=== PATIENT | male | born 1995 | race African-American/Black ===

== ENCOUNTER 2017-10-08 01:51 | Emergency (ER) | payer SELFPAY ==
[~2017-10-08] VITALS: Ht 180.3 cm; Wt 65.0 kg
[2017-10-08 01:57] VITALS: BP 125/60; PULSE 46; RESP 20; TEMP 97.8; O2SAT 100
[2017-10-08] MEDS ORDERED: MONT10TA2 PO (01:58)
[2017-10-08] MEDS ORDERED: SODIUM CHLORIDE 0.9% FLUSH 10 ML FLUSH IVF PRN (02:45)
[2017-10-08 02:54] LABS: AUTOMATED NEUTROPHIL # 5.2 TH/MM3 (1.8-7.7); BASOPHIL # 0.1 TH/MM3 (0-0.2); BASOPHIL % 0.7 % (0.0-2.0); EOSINOPHIL # 0.1 TH/MM3 (0-0.4); EOSINOPHIL % 0.8 % (0.0-4.0); HEMATOCRIT 40.2 % (39.0-51.0); HEMOGLOBIN 13.2 GM/DL (13.0-17.0); LYMPH % 23.9 % (9.0-44.0); LYMPHOCYTE # 1.8 TH/MM3 (1.0-4.8); MEAN CELL VOLUME 80.5 FL (80.0-100.0); MEAN CORPUSCULAR HEMOGLOBIN 26.5 PG (27.0-34.0); MEAN CORPUSCULAR HGB CONC 32.9 % (32.0-36.0); MEAN PLATELET VOLUME 9.4 FL (7.0-11.0); MONO % 5.5 % (0.0-8.0); MONOCYTE # 0.4 TH/MM3 (0-0.9); NEUT % 69.1 % (16.0-70.0); PLATELET COUNT 264 TH/MM3 (150-450); RED BLOOD COUNT 4.99 MIL/MM3 (4.50-5.90); RED CELL DISTRIBUTION WIDTH 13.7 % (11.6-17.2); WHITE BLOOD COUNT 7.5 TH/MM3 (4.0-11.0)
--- NOTE | 2017-10-08 03:04 | PD ---
HPI Chief Complaint: Chest Pain Time Seen by Provider: 02:08 Travel History International Travel<30 days: No Contact w/Intl Traveler<30days: No Traveled to known affect area: No History of Present Illness HPI The patient is a 22-year-old male who presents emergency department for chest pain. The patient states he developed chest pain earlier tonight while sleeping. The chest pain was located in the left lower aspect of the chest, nonradiating, described as "pins and needles ", then developed and the sharpness that lasted for 5 minutes and then resolved. The patient denied any shortness of breath, nausea, vomiting, or diaphoresis with the chest pain. 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 He denies any recent URIs. He denies any history of pericarditis, myocarditis, or coronary artery disease. Patient denies any history of hypertension, hyperlipidemia, diabetes, tobacco use, or significant early family medical history. He denies any associated nausea, vomiting, or abdominal pain. Symptoms are moderate. The symptoms alleviated themselves prior to arrival. [facility] Past Medical History Asthma: Yes Immunizations Current: Yes Tetanus Vaccination: Never Vaccinated Influenza Vaccination: No Past Surgical History Surgical History: No Previous Surgery Social History Alcohol Use: No Tobacco Use: No Substance Use: Yes Allergies-Medications (Allergen,Severity, Reaction): Coded Allergies: No Known Allergies (Unverified , 10/08/17) Reported Meds & Prescriptions Reported Meds & Active Scripts Active Reported Singulair (Montelukast Sodium) 10 Mg Tab 10 Mg PO HS Review of Systems Except as stated in HPI: all other systems reviewed are Neg General / Constitutional: No: Fever HENT: No: Lightheadedness Cardiovascular: Positive: Chest Pain or Discomfort, No: Diaphoresis Respiratory: No: Shortness of Breath, Pleuritic Pain Gastrointestinal: No: Nausea, Vomiting, Abdominal Pain Musculoskeletal: No: Edema Neurologic: No: Dizziness Physical Exam Narrative GENERAL: Awake, alert, pleasant 22-year-old male who appears his stated age and is in no acute respiratory distress. SKIN: Focused skin assessment warm/dry. HEAD: Atraumatic. Normocephalic. EYES: Pupils equal and round. No scleral icterus. No injection or drainage. ENT: No nasal bleeding or discharge. Mucous membranes pink and moist. NECK: Trachea midline. No JVD. CARDIOVASCULAR: Regular rate and rhythm. No murmur appreciated. Palpation of the left chest wall does not reproduce the patient's symptoms. RESPIRATORY: No accessory muscle use. Clear to auscultation. Breath sounds equal bilaterally. GASTROINTESTINAL: Abdomen soft, non-tender, nondistended. No epigastric tenderness.. MUSCULOSKELETAL: No obvious deformities. No clubbing. No cyanosis. No edema. NEUROLOGICAL: Awake and alert. No obvious cranial nerve deficits. Motor grossly within normal limits. Normal speech. PSYCHIATRIC: Appropriate mood and affect; insight and judgment normal. Data Data Last Documented VS Vital Signs Date Time Temp Pulse Resp B/P (MAP) Pulse Ox O2 Delivery O2 Flow Rate FiO2 10/08/17 01:57 97.8 46 20 125/60 (81) 100 Room Air Orders Orders Electrocardiogram (10/08/17 02:44) Ckmb (Isoenzyme) Profile (10/08/17 02:44) Complete Blood Count With Diff (10/08/17 02:44) Comprehensive Metabolic Panel (10/08/17 02:44) Magnesium (Mg) (10/08/17 02:44) Prothrombin Time / Inr (Pt) (10/08/17 02:44) Act Partial Throm Time (Ptt) (10/08/17 02:44) Troponin I (10/08/17 02:44) Lipase (10/08/17 02:44) Ecg Monitoring (10/08/17 02:44) Bilateral Bp Monitoring (10/08/17 02:44) Iv Access Insert/Monitor (10/08/17 02:44) Oximetry (10/08/17 02:44) Oxygen Administration (10/08/17 02:44) Sodium Chloride 0.9% Flush (Ns Flush) (10/08/17 02:45) Chest, Pa & Lat (10/08/17 02:44) CKMB (10/08/17 02:45) CKMB% (10/08/17 02:45) Troponin I (10/08/17 05:30) Labs Laboratory Tests Test 10/08/17 02:45 10/08/17 05:30 White Blood Count 7.5 TH/MM3 Red Blood Count 4.99 MIL/MM3 Hemoglobin 13.2 GM/DL Hematocrit 40.2 % Mean Corpuscular Volume 80.5 FL Mean Corpuscular Hemoglobin 26.5 PG Mean Corpuscular Hemoglobin Concent 32.9 % Red Cell Distribution Width 13.7 % Platelet Count 264 TH/MM3 Mean Platelet Volume 9.4 FL Neutrophils (%) (Auto) 69.1 % Lymphocytes (%) (Auto) 23.9 % Monocytes (%) (Auto) 5.5 % Eosinophils (%) (Auto) 0.8 % Basophils (%) (Auto) 0.7 % Neutrophils # (Auto) 5.2 TH/MM3 Lymphocytes # (Auto) 1.8 TH/MM3 Monocytes # (Auto) 0.4 TH/MM3 Eosinophils # (Auto) 0.1 TH/MM3 Basophils # (Auto) 0.1 TH/MM3 CBC Comment DIFF FINAL Differential Comment Prothrombin Time 11.4 SEC Prothromb Time International Ratio 1.1 RATIO Activated Partial Thromboplast Time 25.4 SEC Blood Urea Nitrogen 10 MG/DL Creatinine 1.02 MG/DL Random Glucose 97 MG/DL Total Protein 7.1 GM/DL Albumin 4.0 GM/DL Calcium Level 8.6 MG/DL Magnesium Level 2.2 MG/DL Alkaline Phosphatase 106 U/L Aspartate Amino Transf (AST/SGOT) 26 U/L Alanine Aminotransferase (ALT/SGPT) 26 U/L Total Bilirubin 0.4 MG/DL Sodium Level 141 MEQ/L Potassium Level 3.7 MEQ/L Chloride Level 107 MEQ/L Carbon Dioxide Level 24.9 MEQ/L Anion Gap 9 MEQ/L Estimat Glomerular Filtration Rate 92 ML/MIN Total Creatine Kinase 263 U/L Creatine Kinase MB 1.6 NG/ML Troponin I LESS THAN 0.02 NG/ML LESS THAN 0.02 NG/ML Lipase 163 U/L [facility] Medical Decision Making Medical Screen Exam Complete: Yes Emergency Medical Condition: Yes Medical Record Reviewed: Yes Interpretation(s) EKG reveals sinus bradycardia with sinus arrhythmia. Biphasic T waves noted in lead V2. Q-wave noted in lead V4, V5, V6. Tall R waves in V4, V5, V6 may be secondary to the patient's thin stature versus left ventricular hypertrophy. Last Impressions Chest X-Ray 10/08/17 2188 Signed Impressions: CONCLUSION: No acute intrathoracic disease. Laboratory Tests Test 10/08/17 02:45 10/08/17 05:30 White Blood Count 7.5 TH/MM3 Red Blood Count 4.99 MIL/MM3 Hemoglobin 13.2 GM/DL Hematocrit 40.2 % Mean Corpuscular Volume 80.5 FL Mean Corpuscular Hemoglobin 26.5 PG Mean Corpuscular Hemoglobin Concent 32.9 % Red Cell Distribution Width 13.7 % Platelet Count 264 TH/MM3 Mean Platelet Volume 9.4 FL Neutrophils (%) (Auto) 69.1 % Lymphocytes (%) (Auto) 23.9 % Monocytes (%) (Auto) 5.5 % Eosinophils (%) (Auto) 0.8 % Basophils (%) (Auto) 0.7 % Neutrophils # (Auto) 5.2 TH/MM3 Lymphocytes # (Auto) 1.8 TH/MM3 Monocytes # (Auto) 0.4 TH/MM3 Eosinophils # (Auto) 0.1 TH/MM3 Basophils # (Auto) 0.1 TH/MM3 CBC Comment DIFF FINAL Differential Comment Prothrombin Time 11.4 SEC Prothromb Time International Ratio 1.1 RATIO Activated Partial Thromboplast Time 25.4 SEC Blood Urea Nitrogen 10 MG/DL Creatinine 1.02 MG/DL Random Glucose 97 MG/DL Total Protein 7.1 GM/DL Albumin 4.0 GM/DL Calcium Level 8.6 MG/DL Magnesium Level 2.2 MG/DL Alkaline Phosphatase 106 U/L Aspartate Amino Transf (AST/SGOT) 26 U/L Alanine Aminotransferase (ALT/SGPT) 26 U/L Total Bilirubin 0.4 MG/DL Sodium Level 141 MEQ/L Potassium Level 3.7 MEQ/L Chloride Level 107 MEQ/L Carbon Dioxide Level 24.9 MEQ/L Anion Gap 9 MEQ/L Estimat Glomerular Filtration Rate 92 ML/MIN Total Creatine Kinase 263 U/L Creatine Kinase MB 1.6 NG/ML Troponin I LESS THAN 0.02 NG/ML LESS THAN 0.02 NG/ML Lipase 163 U/L Differential Diagnosis Differential diagnosis includes STEMI, ACS, pericarditis, myocarditis, pleurisy , pleural effusion, pneumonia, pulmonary embolism, gastritis, pancreatitis. Narrative Course IV was established, labs are drawn and sent, and the patient was placed on cardiac telemetry monitoring and continuous pulse oximetry monitoring. EKG was ordered and interpreted. Chest x-ray was obtained. The patient's chest x-ray is unremarkable. EKG does show biphasic T-wave in lead V2 with Q waves in V4 through V6. Initial troponin was less than 0.02. The patient is currently chest pain-free. The patient does state he had an echocardiogram, for unknown reason, and high school, that was apparently negative. Therefore, second troponin was ordered near the 3 hour lorenzo for 5:30 AM. If the troponin is negative I have advised the patient to follow-up with his team as he may need an outpatient echocardiogram to rule out idiopathic hypertrophic subaortic stenosis. The second troponin is less than 0.02. The patient is stable for outpatient follow-up. Diagnosis Primary Impression: Atypical chest pain Patient Instructions: General Instructions Additional Instructions: Please provide the patient a copy of his EKG, chest x-ray results, lab results at discharge. School excuse for today. Follow-up with your team physician as he may benefit from outpatient echocardiogram to evaluate for idiopathic hypertrophic subaortic stenosis. Med/Other Pt SpecificInfo: No Change to Meds Disposition: 01 DISCHARGE HOME Condition: Stable Leonard Givens MD Oct 08, 2017 03:04
--- NOTE | 2017-10-08 03:06 | RADRPT ---
EXAM DATE: 10/08/2017 3:00 AM EDT AGE/SEX: 22 years / Male INDICATIONS: Left side chest pain. CLINICAL DATA: This is the patient's initial encounter. Patient reports that signs and symptoms have been present for 1 day and indicates a pain score of 4/10. MEDICAL/SURGICAL HISTORY: None. None. COMPARISON: No prior [place] exams available for comparison. FINDINGS: PA and lateral views of the chest demonstrate the lungs to be symmetrically aerated without evidence of mass, infiltrate or effusion. The cardiomediastinal contours are unremarkable. Osseous structures are intact. CONCLUSION: No acute intrathoracic disease. Electronically signed by: Jasen Barajas MD 10/08/2017 3:05 AM EDT
[2017-10-08 03:07] LABS: INTERNATIONAL NORMALIZED RATIO 1.1 RATIO; PROTHROMBIN TIME - PATIENT 11.4 SEC (9.8-11.6)
[2017-10-08 03:13] LABS: ALT (GPT) 26 U/L (12-78); AST (GOT) 26 U/L (15-37); BICARBONATE 24.9 MEQ/L (21.0-32.0); BLOOD UREA NITROGEN 10 MG/DL (7-18); CALCIUM 8.6 MG/DL (8.5-10.1); CHLORIDE 107 MEQ/L (98-107); CREATININE 1.02 MG/DL (0.60-1.30); GLOMERULAR FILTRATION RATE 92 ML/MIN (>89); GLUCOSE,RANDOM 97 MG/DL (74-106); MAGNESIUM 2.2 MG/DL (1.5-2.5); SODIUM (NA) 141 MEQ/L (136-145)
[2017-10-08 03:17] LABS: ALKALINE PHOSPHATASE 106 U/L (45-117); TOTAL BILIRUBIN ADULT 0.4 MG/DL (0.2-1.0); TOTAL PROTEIN 7.1 GM/DL (6.4-8.2); TROPONIN I LESS THAN 0.02 NG/ML (0.02-0.05)
--- NOTE | 2017-10-08 18:53 | EKG ---
Date Performed: 10/08/2017 Time Performed: 01:08:06 PTAGE: 22 years EKG: SINUS BRADYCARDIA WITH SINUS ARRHYTHMIA POSSIBLE LEFT VENTRICULAR HYPERTROPHY MARKED T-WAVE ABNORMALITY EARLY REPOLARIZATION NO PREVIOUS TRACING DOCTOR: Delmis Ford Interpretating Date/Time 10/08/2017 18:52:21
== END 2017-10-08 06:35 | disposition home or self-care (01) ==
LOC: NEPE 01:51
DX: R07.89 Other chest pain (principal); R00.1 Bradycardia, unspecified
CPT/HCPCS: 71046; 80053; 82550; 82552; 83690; 83735; 84484; 85025; 85610; 85730; 93005; 99285